=== PATIENT | female | born 1995 | race Caucasian/White ===

== ENCOUNTER 2022-05-23 20:41 | Emergency (ER) | payer BC ==
[~2022-05-23] VITALS: Ht 157.5 cm; Wt 81.6 kg
[2022-05-23 20:47] VITALS: BP_SYST 145
== END 2022-05-23 22:12 | disposition left against medical advice (07) ==
LOC: SED 20:41
DX: R06.02 Shortness of breath (principal); F41.9 Anxiety disorder, unspecified; Z53.21 Procedure and treatment not carried out due to patient leaving prior to being seen by health care provider
CPT/HCPCS: 81025; 99281